=== PATIENT | male | born 1985 ===

== ENCOUNTER 2017-01-21 19:14 | Inpatient (IN) | payer MEDICAID, OTHER ==
[2017-01-21] MEDS ORDERED: Etomidate 20 mg/10ml Inj IV ONE (19:21)
[2017-01-21] MEDS ORDERED: Succinylcholine 200 mg/10 ml Inj IV ONE (19:22)
[2017-01-21 19:24] VITALS: BMI 25.8
[2017-01-21] MEDS ORDERED: Naloxone 0.4 mg/ml Inj (Adult) ONE (19:24)
--- NOTE | 2017-01-21 19:34 | ED PDOC ---
Arrival/HPI - General Chief Complaint: Altered Mental Status Time Seen by Provider: 01/21/17 19:30 Historian: EMS - History of Present Illness Narrative History of Present Illness (Text): 01/21/17 19:31 Unknown aged male with unknown past medical history brought in by ambulance for altered mental status. As per EMS, patient was found with altered mental status , unable to provide further history due to language barrier. EMS reports as the patient was walking to the stretcher he became unresponsive. It is unknown if alcohol consumption was a factor. On arrival, patient is unarousable to deep sternal rub, unable to protect airway. Narcan was given with no response. Patient intubated for airway protection. Time/Duration: Prior to Arrival Symptom Onset: Sudden Symptom Course: Unchanged Associated Symptoms (Text): None Past Medical History - Provider Review Nursing Documentation Reviewed: Yes - Psychiatric Hx Substance Use: No (unknown) Family/Social History - Physician Review Nursing Documentation Reviewed: Yes Family/Social History: Unknown Family HX Smoking Status: Unknown If Ever Smoked Hx Alcohol Use: Yes Hx Substance Use: No (unknown) Allergies/Home Meds Allergies/Adverse Reactions: Allergies No Known Allergies Allergy (Verified 01/23/17 07:31) Review of Systems - Review of Systems Systems not reviewed;Unavailable: Altered Mental Status Physical Exam Vital Signs Reviewed: Yes Vital Signs Pulse Resp BP Pulse Ox 01/21/17 22:28 78 12 127/66 99 01/21/17 21:25 86 18 132/74 98 01/21/17 20:30 68 18 119/70 99 01/21/17 19:24 64 9 L 126/83 82 L Blood Pressure: Normal Pulse: Regular Respiratory Rate: Agonal Appearance: Positive for: Well-Appearing, Non-Toxic, Comfortable Pain Distress: None Mental Status: Positive for: other (Unarousable by sternal rub) Finger Stick Blood Glucose: 126 - Systems Exam Head: Present: Atraumatic, Normocephalic, Other (Dry blood around nares and oral pharynx) Pupils: Present: PERRL Conjunctiva: Present: Normal Mouth: Present: Other (Poor dentition) Abdomen: Present: Normal Bowel Sounds. No: Tenderness, Distention, Peritoneal Signs Upper Extremity: Present: Normal Inspection. No: Cyanosis, Edema Lower Extremity: Present: Normal Inspection. No: Edema Skin: Present: Warm, Dry, Normal Color. No: Rashes Medical Decision Making ED Course and Treatment: Impression: Unknown aged male with unknown past medical history brought in by ambulance for altered mental status. Differential Diagnosis include but are not limited to: Plan: -- CT's head, maxillofacial, c-spine, EKG, Chest X-ray -- Labs -- Reassess and disposition Progress Notes: Patient seen immediately on arrival. Patient unarousable to sternal rub, unable to protect airway. Narcan was given with no response. Patient subsequently intubated for airway protection. PROCEDURE: INTUBATION Performed by the emergency provider Time: 19:30 Consent: Discussion of the risks, benefits, and alternatives to the procedure, along with informed consent was precluded by the urgency of the procedure and the patient condition. Timeout: A timeout to verify the correct patient, procedure, and site was performed. Indication: Unarousable, unable to protect airway Pre-oxygenation: [id number] Medications: Propofol See MAR for details. ETT Size: 7 Confirmation: Cords directly visualized as tube passed, good bilateral breath sounds, positive CO2 detector color change, tube fogging, adequate chest rise, improving pulse oximetry reading, improved skin color, and absence of gastric sounds,. ETT Secured: The cuff was inflated and the tube was secured appropriately at a distance of 23 cm at the lip. Post-Procedure: There were no immediate complications. CXR Confirmation: Yes - Critical Care Critical Care Minutes: 30 minutes - Lab Interpretations Lab Results: 01/21/17 19:20 01/21/17 19:20 Lab Results 01/21/17 20:48: Urine Color Yellow, Urine Appearance Clear, Urine pH 6.0, Ur Specific [place] <= 1.005, Urine Protein Trace H, Urine Glucose (UA) Negative, Urine Ketones Negative, Urine Blood Moderate H, Urine Nitrate Negative, Urine Bilirubin Negative, Urine Urobilinogen 0.2, Ur Leukocyte Esterase Negative, Urine RBC 20 - 25, Urine WBC 2 - 5, Ur Epithelial Cells 4 - 5, Urine Opiates Screen Negative, Urine Methadone Screen Negative, Ur Barbiturates Screen Negative, Ur Phencyclidine Scrn Negative, Ur Amphetamines Screen Negative, U Benzodiazepines Scrn Negative, U Oth Cocaine Metabols Positive H, U Cannabinoids Screen Negative 01/21/17 19:20: WBC 3.5 L, RBC 4.32, Hgb 13.1 L, Hct 38.2 L, MCV 88.4, MCH 30.3 , MCHC 34.3, RDW 13.9, Plt Count 224, MPV 10.3, Gran % 46.2 L, Lymph % (Auto) 42.6 H, [place] % (Auto) 8.1 H, Eos % (Auto) 1.7, Baso % (Auto) 1.4, Gran # 1.59, Lymph # 1.5, [place] # 0.3, Eos # 0.1, Baso # 0.05, PT 11.3, INR 1.05, APTT 29.5, Sodium 143, Potassium 3.7, Chloride 105, Carbon Dioxide 22, Anion Gap 20, BUN 6 L, Creatinine 0.6, Est GFR ( Amer) > 60, Est GFR (Non-Af Amer) > 60, Random Glucose 124 H, Calcium 8.8, Magnesium 2.2, Total Bilirubin 0.9, AST 82 H , ALT 50, Alkaline Phosphatase 104, Lactate Dehydrogenase 560, Total Creatine Kinase 280 H, CK-MB (CK-2) 2.4, CK-MB (CK-2) % Cancelled, Troponin I < 0.01, Total Protein 8.7 H, Albumin 4.5, Globulin 4.2, Albumin/Globulin Ratio 1.1, TSH 3rd Generation 0.34 L, Salicylates < 1 L, Acetaminophen < 10.0 L, Alcohol, Quantitative 404 H*, Hepatitis A IgM Ab Negative, Hep Bs Antigen Negative, Hep B Core IgM Ab Negative, Hepatitis C Antibody Negative - RAD Interpretation Radiology Orders: 01/21/17 19:30 CHEST PORTABLE [RAD] Stat 01/21/17 19:31 CERVICAL SPINE W/O CONTRAST [CT] Stat HEAD W/O CONTRAST [CT] Stat MAXILLOFACIAL W/O CONTRAST [CT] Stat - Medication Orders Current Medication Orders: Discontinued Medications Etomidate (Amidate) Confirm Administered Dose 20 mg IV .STK-MED ONE Stop: 01/21/17 19:22 Last Admin: 01/21/17 19:21 Dose: 20 MG Comments: given by intubation team eMAR Start Stop Document 01/21/17 19:21 TAMRA (Rec: 01/21/17 20:36 [place] [id number] Intravenous Solution Start Date 01/21/17 Start Time 19:21 End Date 01/21/17 End time 19:21 Total Infusion Time 0 Folic Acid (Folic Acid) 1 mg PO DAILY [facility] Last Admin: 01/24/17 11:44 Dose: 1 MG Heparin Sodium (Porcine) (Heparin) 5,000 units SC Q12 RAUL PRN Reason: Protocol Last Admin: 01/24/17 11:44 Dose: 5,000 UNITS Subcutaneous Administrations Document 01/24/17 11:44 TAV (Rec: 01/24/17 11:44 TAV [id number] Injection Site MAR Injection Site Right Abdomen Charges for Administration # of Subcutaneous Administrations 1 Propofol (Diprivan) 100 mls @ 2.177 mls/hr IV .Q24H PRN; Protocol; 5 MCG/KG/MIN PRN Reason: TITRATE PER MD ORDER Last Admin: 01/22/17 03:00 Dose: 21.773 MLS/HR Titration Intervention Document 01/22/17 03:00 MPD (Rec: 01/22/17 07:25 MPD [id number]) Titration Intake Container Volume 100 Titration Dosing Titration Dose 50 IV Rate 21.773 Intake/Decrease Running eMAR Start Stop Document 01/22/17 03:00 MPD (Rec: 01/22/17 07:25 MPD [id number]) Intravenous Solution Start Date 01/22/17 Start Time 04:00 Sodium Chloride (Sodium Chloride 0.9%) 1,000 mls @ 100 mls/hr IV .Q10H [facility] Last Admin: 01/24/17 11:51 Dose: Not Given Non-Admin Reason: Patient Refused Multivitamins/Vitamin C 10 ml/Thiamine HCl 100 mg/ Folic Acid 1 mg/ Sodium Chloride 1,011.2 mls @ 100 mls/hr IV .Q10H7M ONE Stop: 01/22/17 08:19 Last Admin: 01/21/17 23:30 Dose: 100 MLS/HR eMAR Start Stop Document 01/21/17 23:30 MPD (Rec: 01/22/17 00:35 MPD [id number]) Intravenous Solution Start Date 01/21/17 Start Time 23:30 Multivitamins/Vitamin C 10 ml/ (Dextrose) 1,010 mls @ 100 mls/hr IV ONCE ONE Stop: 01/23/17 04:12 Lorazepam (Ativan) 2 mg IVP ONCE ONE PRN Reason: Protocol Stop: 01/21/17 20:04 Last Admin: 01/21/17 20:39 Dose: 2 MG Behavioural Document 01/21/17 20:39 TAMRA (Rec: 01/21/17 20:[address] [id number]) Maintenance Maintenance Dose No Nonmedicinal Nonmedicinal Interventions Redirect Behavior Behavior for Medication: Pulling IV lines/tubes/ catheter IVP Administration Document 01/21/17 20:39 TAMRA (Rec: 01/21/17 20:[address] [id number]) Charges for Administration # of IVP Administrations 1 Lorazepam (Ativan) 2 mg IVP Q6H PRN; Protocol PRN Reason: Agitation Last Admin: 01/22/17 06:06 Dose: 2 MG Behavioural Document 01/22/17 06:06 MPD (Rec: 01/22/17 06:07 MPD [id number]) Nonmedicinal Nonmedicinal Interventions Redirect Behavior Behavior for Medication: Anxiety Head banging Pulling IV lines/tubes/ catheter IVP Administration Document 01/22/17 06:06 MPD (Rec: 01/22/17 06:07 MPD [id number]) Charges for Administration # of IVP Administrations 1 Naloxone HCl (Narcan) Confirm Administered Dose 0.4 mg .ROUTE .STK-MED ONE Stop: 01/21/17 19:25 Last Admin: 01/21/17 20:34 Dose: 0.4 MG Pantoprazole Sodium (Protonix Inj) 40 mg IVP DAILY [facility] Last Admin: 01/24/17 11:45 Dose: 40 MG IVP Administration Document 01/24/17 11:45 TAV (Rec: 01/24/17 11:[address] [facility] [id number]) Charges for Administration # of IVP Administrations 1 Succinylcholine Chloride (Quelicin) Confirm Administered Dose 200 mg IV .STK- MED ONE Stop: 01/21/17 19:23 Last Admin: 01/21/17 19:22 Dose: 200 MG Comments: Given by intubation team eMAR Start Stop Document 01/21/17 19:22 TAMRA (Rec: 01/21/17 20:[address] [id number]) Intravenous Solution Start Date 01/21/17 Start Time 19:22 End Date 01/21/17 End time 19:22 Total Infusion Time 0 Thiamine HCl (Vitamin B1 Inj) 100 mg IM STAT STA Stop: 01/21/17 22:14 Last Admin: 01/22/17 00:00 Dose: 100 MG IM Administration Charges Document 01/22/17 00:00 MPD (Rec: 01/22/17 01:13 MPD [id number] Injection Site MAR Injection Site Right Deltoid Charges for Administration # of IM Administrations 1 Thiamine HCl (Vitamin B1 Tab) 50 mg PO DAILY [facility] Last Admin: 01/24/17 11:45 Dose: 50 MG - Scribe Statement The provider has reviewed the documentation as recorded by the Ligia Leiva Provider Scribe Attestation: All medical record entries made by the Ligia were at my direction and personally dictated by me. I have reviewed the chart and agree that the record accurately reflects my personal performance of the history, physical exam, medical decision making, and the department course for this patient. I have also personally directed, reviewed, and agree with the discharge instructions and disposition. Disposition/Present on Arrival - Present on Arrival Any Indicators Present on Arrival: No History of DVT/PE: No History of Uncontrolled Diabetes: No Urinary Catheter: No History of Decub. Ulcer: No History Surgical Site Infection Following: None - Disposition Have Diagnosis and Disposition been Completed?: Yes Diagnosis: Drug overdose, Respiratory failure Disposition: HOSPITALIZED Disposition Time: 08:00 Condition: FAIR
[2017-01-21 20:08] LABS: ADD MANUAL DIFF? NO
[2017-01-21 20:13] LABS: BASO # 0.05 K/mm3 (0.0-2.0); BASO % 1.4 % (0.0-3.0); EOS # 0.1 (0.0-0.7); EOS % 1.7 % (1.5-5.0); GRAN # 1.59 (1.4-6.5); GRAN % 46.2 % (50.0-68.0); HEMATOCRIT 38.2 % (42.0-52.0); LYMPH # 1.5 (1.2-3.4); LYMPH % 42.6 % (22.0-35.0); MEAN CELL VOLUME 88.4 fL (80.0-105.0); MEAN CORPUSCULAR HEMOGLOBIN 30.3 pg (25.0-35.0); MEAN CORPUSCULAR HGB CONC 34.3 g/dl (31.0-37.0); MEAN PLATELET VOLUME 10.3 fl (7.0-11.0); MONO # 0.3 (0.1-0.6); MONO % 8.1 % (1.0-6.0); PLATELET COUNT 224 10^3/uL (120.0-450.0); RED CELL DISTRIBUTION WIDTH 13.9 % (11.5-14.5); WHITE BLOOD COUNT 3.5 10^3/ul (4.5-11.0)
[2017-01-21 20:25] LABS: INR 1.05 (0.93-1.08); PARTIAL THROMBOPLASTIN TIME 29.5 Seconds (23.7-30.8)
[2017-01-21 20:40] LABS: ALB/GLOB RATIO 1.1 (1.1-1.8); ALKALINE PHOSPHATASE 104 U/L (38-133); ALT/SGPT 50 U/L (7-56); AST/SGOT 82 U/L (15-59); BILIRUBIN,TOTAL 0.9 mg/dL (0.2-1.3); BLOOD UREA NITROGEN 6 mg/dL (7-21); CALCIUM 8.8 mg/dL (8.4-10.5); CARBON DIOXIDE 22 mmol/L (21-33); CHLORIDE 105 mmol/L (98-107); GFR AFRICAN-AMERICAN > 60; GLUCOSE,RANDOM 124 mg/dL (70-110); MAGNESIUM 2.2 mg/dL (1.7-2.2); POTASSIUM 3.7 mmol/L (3.6-5.0); SODIUM 143 mmol/L (132-148); TOTAL PROTEIN 8.7 g/dL (5.8-8.3)
[2017-01-21 20:57] LABS: URINE BILIRUBIN NEGATIVE (NEGATIVE); URINE BLOOD MODERATE (NEGATIVE); URINE GLUCOSE (UA) NEGATIVE (NEGATIVE); URINE KETONE NEGATIVE (NEGATIVE); URINE LEUKOCYTE ESTERASE NEGATIVE Leu/uL (NEGATIVE); URINE PROTEIN TRACE mg/dL (<30 mg/dL); URINE UROBILINOGEN 0.2 E.U./dL (<1 E.U./dL)
[2017-01-21 20:58] LABS: URINE APPEARANCE CLEAR (CLEAR); URINE COLOR YELLOW (YELLOW)
[2017-01-21 20:59] LABS: URINE RBC 20 - 25 /hpf (0-2)
[2017-01-21 20:59] LABS: TROPONIN I < 0.01 ng/mL
[2017-01-21 21:21] LABS: ABG MECHANICAL RATE 16; ARTERIAL BLOOD GAS HCO3 21.1 mmol/L (21-28); ARTERIAL BLOOD GAS PH 7.32 (7.35-7.45); ATERIAL BLOOD GAS PEEP 5
--- NOTE | 2017-01-21 21:37 | CP.PCM.HP ---
<Mami Arreola - Last Filed: 01/21/17 22:18> History of Present Illness - History of Present Illness History of Present Illness: This is a 31Y M with unknown PMH who called EMS and was found to be intoxicated. EMS noted dried blood on his nares. He was brought to the stretched and collapsed. He was unresponsive. In the ED, patient was not arrousable. He was intubated for airway protection. EKG showed NSR. Patient was found to be positive for cocaine and had an alcohol level of 404. PMH: unknown PSH: unknown Home meds: Unobtainable All: Unobtainable SH: + for cocaine and high alcohol level FH: Unobtainable PMD: unknown Present on Admission - Present on Admission Any Indicators Present on Admission: No Review of Systems - Review of Systems Systems not reviewed;Unavailable: Intubated Past Patient History - Past Social History Smoking Status: Unknown If Ever Smoked Drugs: Cocaine - PSYCHIATRIC Hx Substance Use: No (unknown) - SURGICAL HISTORY Hx Surgeries: (unable to obtain) Meds Allergies/Adverse Reactions: Allergies Allergy/AdvReac Type Severity Reaction Status Date / Time Unobtainable Allergy Verified 01/21/17 19:23 Physical Exam - Constitutional Appears: No Acute Distress Additional comments: Pt intubated and sedated - Head Exam Head Exam: ATRAUMATIC, NORMAL INSPECTION, NORMOCEPHALIC - Eye Exam Eye Exam: Normal appearance Pupil Exam: Miosis - ENT Exam Additional comments: dried blood on face and nares - Neck Exam Neck exam: Positive for: Normal Inspection - Respiratory Exam Respiratory Exam: Clear to Auscultation Bilateral, NORMAL BREATHING PATTERN. absent: Rales, Rhonchi, Wheezes - Cardiovascular Exam Cardiovascular Exam: REGULAR RHYTHM, +S1, +S2. absent: Gallop, Rubs, Systolic Murmur - GI/Abdominal Exam GI & Abdominal Exam: Hypoactive Bowel Sounds, Soft. absent: Mass, Rebound, Rigid, Tenderness - Extremities Exam Extremities exam: Positive for: normal inspection. Negative for: calf tenderness, pedal edema - Skin Skin Exam: Dry, Normal Color, Warm Results - Vital Signs Recent Vital Signs: Last Vital Signs Temp Pulse 64 01/21/17 19:24 Resp 9 L 01/21/17 19:24 BP 126/83 01/21/17 19:24 Pulse Ox 82 L 01/21/17 19:24 - Labs Result Diagrams: 01/21/17 19:20 01/21/17 19:20 Labs: Laboratory Results - last 24 hr 01/21/17 01/21/17 01/21/17 19:20 20:48 21:15 WBC 3.5 L RBC 4.32 Hgb 13.1 L Hct 38.2 L MCV 88.4 MCH 30.3 MCHC 34.3 RDW 13.9 Plt Count 224 MPV 10.3 Gran % 46.2 L Lymph % (Auto) 42.6 H [place] % (Auto) 8.1 H Eos % (Auto) 1.7 Baso % (Auto) 1.4 Gran # 1.59 Lymph # 1.5 [place] # 0.3 Eos # 0.1 Baso # 0.05 PT 11.3 INR 1.05 APTT 29.5 pCO2 41 pO2 404.0 H HCO3 21.1 ABG pH 7.32 L ABG Total CO2 22.4 ABG O2 Saturation 97.7 ABG Base Excess -4.8 L ABG Potassium 3.5 L Glucose 90 Lactate 2.0 Mechanical Rate 16 FiO2 100.0 Tidal Volume 400 PEEP 5 Sodium 143 143.0 Potassium 3.7 Chloride 105 116.0 H Carbon Dioxide 22 Anion Gap 20 BUN 6 L Creatinine 0.6 Est GFR ( Amer) > 60 Est GFR (Non-Af Amer) > 60 Random Glucose 124 H Calcium 8.8 Magnesium 2.2 Total Bilirubin 0.9 AST 82 H ALT 50 Alkaline Phosphatase 104 Lactate Dehydrogenase 560 Total Creatine Kinase 280 H CK-MB (CK-2) 2.4 CK-MB (CK-2) % Cancelled Troponin I < 0.01 Total Protein 8.7 H Albumin 4.5 Globulin 4.2 Albumin/Globulin Ratio 1.1 Arterial Blood Potassium 3.5 L Urine Color Yellow Urine Appearance Clear Urine pH 6.0 Ur Specific [place] <= 1.005 Urine Protein Trace H Urine Glucose (UA) Negative Urine Ketones Negative Urine Blood Moderate H Urine Nitrate Negative Urine Bilirubin Negative Urine Urobilinogen 0.2 Ur Leukocyte Esterase Negative Urine RBC 20 - 25 Urine WBC 2 - 5 Ur Epithelial Cells 4 - 5 Salicylates < 1 L Urine Opiates Screen Negative Urine Methadone Screen Negative Acetaminophen < 10.0 L Ur Barbiturates Screen Negative Ur Phencyclidine Scrn Negative Ur Amphetamines Screen Negative U Benzodiazepines Scrn Negative U Oth Cocaine Metabols Positive H U Cannabinoids Screen Negative Alcohol, Quantitative 404 H* Assessment & Plan - Assessment and Plan (Free Text) Assessment: This is a 31Y M with unknown PMH found to be positive for alcohol and cocaine was intubated for airway protection. Plan: Neuro: Sedated on Propofol CIWA protocol when pt awake Aspiration precaution Ativan prn agitation Neuro check q4h Head CT neg for bleed Cervical Spine CT neg for fracture Maxofacial CT showed bilateral nasal fracture- patient can follow up with ENT as outpatient CV: EKG showed NSR Maintain MAP >65 Strict I&O Pulm: on PRVC Maintain SpO2>90% Breathing trial in AM ABG in AM GI: Protonix IV AST mildly elevated Will check Hep panel Heme: Mild leukopenia Mild anemia Will continue to monitor CBC Renal: [place] in place Banana bag Continue to monitor electrolytes- will replace and replete as needed Will check Phos Endo: Will check TSH Maintain Euglycemia GI ppx: PTX DVT ppx: Heparin SC Case seem, reviewed and discussed with attending. Yulisa Arreola PGY1 - Date & Time Date: 01/21/17 Time: 21:52 <Matthew Russo Q - Last Filed: 01/21/17 23:42> Results - Vital Signs Recent Vital Signs: Last Vital Signs Temp Pulse 78 01/21/17 22:28 Resp 12 01/21/17 22:28 BP 127/66 01/21/17 22:28 Pulse Ox 99 01/21/17 22:28 - Labs Result Diagrams: 01/21/17 19:20 01/21/17 19:20 Labs: Laboratory Results - last 24 hr 01/21/17 21:15 pCO2 41 pO2 404.0 H HCO3 21.1 ABG pH 7.32 L ABG Total CO2 22.4 ABG O2 Saturation 97.7 ABG Base Excess -4.8 L ABG Potassium 3.5 L Sodium 143.0 Chloride 116.0 H Glucose 90 Lactate 2.0 Mechanical Rate 16 FiO2 100.0 Tidal Volume 400 PEEP 5 Arterial Blood Potassium 3.5 L Attending/Attestation - Attestation I have personally seen and examined this patient.: Yes I have fully participated in the care of the patient.: Yes I have reviewed all pertinent clinical information: Yes Notes (Text): 01/21/17 23:38 I agree with the above mentioned note and exam by Dr. Arreola with the addition /exception of the followin31 y/o male with an unknown PMHx as he is brought in to the ED without any identification as a "Kendell Taylor" who was noted to be intoxicated and subsequently becoming unresponsive; he was intubated in the ED for airway protection due to oxygen desaturation and unresponsiveness. CT Head did not show any bleed; Maxillofacial CT shows nasal septum fractures. I weaned down the diprivan he was started on in the ED and the patient became agitated and attempted to remove his ETT while on restraints; we will keep him on sedation overnight and attempt a breathing trial in the AM once he is no longer intoxicated. He is hemodynamically stable otherwise; will hydrate him with Banana Bag IVF. Case discussed at length with Dr. Juárez in the ED all labs and images that have been available thus far have been reviewed personally; Vrads reports noted total time of care: 40 minutes
--- NOTE | 2017-01-21 21:55 | CT ---
EXAM: CT Head Without Intravenous Contrast CLINICAL HISTORY: 31 years old, male; Injury or trauma; Fall; Initial encounter; Abrasion; Head, generalized; Patient HX: ETOH; intubated TECHNIQUE: Axial computed tomography images of the head/brain without intravenous contrast. This CT exam was performed using one or more of the following dose reduction techniques: automated exposure control, adjustment of the mA and/or kV according to patient size, and/or use of iterative reconstruction technique. EXAM DATE/TIME: 01/21/2017 7:31 PM COMPARISON: There are no prior studies for comparison. FINDINGS: Brain: There is prominence of sulci, gyri and ventricles. There is a cavum septum pellucidum. There is a cavum vergae. There is no midline shift. There are no intra-axial or extra-axial mass lesions or areas of hemorrhage. There are no abnormal fluid collections. Russell-white differentiation is maintained. Ventricles: See above. Bones/joints: Bones: Cranial vault is intact. There are nasal bone fractures. There is a nasal septal fracture Soft tissues: unremarkable Tubes and catheters: An endotracheal tube is in place Sinuses: There is mucoperiosteal thickening in the paranasal sinuses Mastoid air cells: Ears and mastoids: Middle ears and mastoids are unremarkable Orbits: Right globe is unremarkable There is an old right lamina papyracea fracture. There is deformity of the left globe. There is partial dislocation of the left lens. There are dystrophic calcifications. There is vitreous hemorrhage. There are no acute retrobulbar injury. IMPRESSION: Atrophy, no bleed; probable old left globe injury; old right lamina papyracea fracture; age indeterminate nasal bone fractures
--- NOTE | 2017-01-21 22:02 | CT ---
EXAM: CT Cervical Spine Without Intravenous Contrast CLINICAL HISTORY: 31 years old, male; Injury or trauma; Fall; Initial encounter; Abrasion; Patient HX: Fall ETOH; intubated TECHNIQUE: Axial computed tomography images of the cervical spine without intravenous contrast. This CT exam was performed using one or more of the following dose reduction techniques: automated exposure control, adjustment of the mA and/or kV according to patient size, and/or use of iterative reconstruction technique. Coronal and sagittal reformatted images were created and reviewed. EXAM DATE/TIME: 01/21/2017 7:31 PM COMPARISON: There are no prior studies for comparison. FINDINGS: Limitations: Evaluation is slightly limited by asymmetric positioning. Vertebrae: There is maintenance of the cervical lordosis. There is no prevertebral soft tissue swelling. Cervical vertebral bodies are normal in height and alignment. Disc spaces are maintained. Facet joints align anatomically.Spinous processes align in the expected fashion. There is mild asymmetry of the dens relative to lateral masses of C1 most likely positional Discs/spinal canal/neural foramina: see above Other bones/joints: There is an old left second rib fracture Soft tissues: See above. Thyroid: Thyroid is unremarkable Lung apices: Lung apices are clear Tubes, lines and devices: Endotracheal tube is in place. Tip of the tube is at the thoracic inlet. Other: There is minimal iatrogenic venous air IMPRESSION: No acute fracture seen
[2017-01-21] MEDS ORDERED: Multivitamin (MVI) 10 ML, Thiamine 100 MG, Folic Acid 1 MG in Sodium Chloride 0.9% 1,00... IV ONE (22:13)
[2017-01-21] MEDS ORDERED: Thiamine 100 mg/ml Inj IM STA (22:13)
--- NOTE | 2017-01-21 22:14 | CT ---
EXAM: CT Maxillofacial Without Intravenous Contrast CLINICAL HISTORY: 31 years old, male; Injury or trauma; Fall; Initial encounter; Abrasion; Forehead; Patient HX: ETOH; intubated TECHNIQUE: Axial computed tomography images of the face without intravenous contrast. This CT exam was performed using one or more of the following dose reduction techniques: automated exposure control, adjustment of the mA and/or kV according to patient size, and/or use of iterative reconstruction technique. Coronal and sagittal reformatted images were created and reviewed. EXAM DATE/TIME: 01/21/2017 7:31 PM COMPARISON: There are no prior studies for comparison. FINDINGS: Superficial soft tissues: There is soft tissue swelling over the nose. There is soft tissue swelling in the cheeks bilaterally. Bony structures: There are bilateral nasal bone fractures. There is a bony nasal septal fracture. There is an old right lamina papyracea fracture. There is herniation of right orbital fat into the adjacent ethmoid air cell. There are no acute orbital fractures. Dental: There are large erosions in the alveolar ridge of the mandible. Erosion is associated bilateral central and lateral incisors. There is partial absence of the right upper central incisor. There is a large erosion of the root of the left central incisor. There is partial absence of the left upper canine. Brain: No acute abnormalities are seen in visualized portion of the brain. Ears and mastoids: Middle ears and mastoids are unremarkable Orbits: Right globe is intact. There is deformity of the left globe. There is partial dislocation of the left lens.. There are dystrophic calcifications in the vitreous. There is a increased attenuation in the posterior vitreous. Sinuses: There is no acute sinusitis. There is mild mucoperiosteal thickening in the sinuses. Soft tissues: There are no facial masses. Airway: An endotracheal tube is in place. There is fluid in the posterior nasopharynx and oropharynx. Hypopharynx is collapsed. IMPRESSION: Soft tissue swelling over the nose and cheeks with nasal bone fractures and nasal septal fracture; old right lamina papyracea fracture; probable old left globe injury; extensive dental disease; endotracheal tube in place
[2017-01-22 05:39] LABS: ADD MANUAL DIFF? NO
[2017-01-22 05:44] LABS: BASO # 0.03 K/mm3 (0.0-2.0); BASO % 0.6 % (0.0-3.0); EOS # 0.1 (0.0-0.7); EOS % 2.3 % (1.5-5.0); GRAN # 3.16 (1.4-6.5); HEMATOCRIT 35.8 % (42.0-52.0); LYMPH # 1.3 (1.2-3.4); LYMPH % 24.9 % (22.0-35.0); MEAN CELL VOLUME 88.6 fL (80.0-105.0); MEAN CORPUSCULAR HEMOGLOBIN 29.7 pg (25.0-35.0); MEAN CORPUSCULAR HGB CONC 33.5 g/dl (31.0-37.0); MEAN PLATELET VOLUME 10.1 fl (7.0-11.0); MONO # 0.6 (0.1-0.6); MONO % 12.2 % (1.0-6.0); PLATELET COUNT 189 10^3/uL (120.0-450.0); RED CELL DISTRIBUTION WIDTH 14.3 % (11.5-14.5); WHITE BLOOD COUNT 5.3 10^3/ul (4.5-11.0)
[2017-01-22 05:46] LABS: VENOUS BLOOD GAS BASE EXCESS -3.4 mmol/L (0.0-2.0); VENOUS BLOOD PH 7.37 (7.32-7.43)
[2017-01-22 06:38] LABS: ALB/GLOB RATIO 1.1 (1.1-1.8); ALKALINE PHOSPHATASE 91 U/L (38-133); ALT/SGPT 51 U/L (7-56); AST/SGOT 85 U/L (15-59); BILIRUBIN,TOTAL 0.7 mg/dL (0.2-1.3); BLOOD UREA NITROGEN 6 mg/dL (7-21); CALCIUM 8.2 mg/dL (8.4-10.5); CARBON DIOXIDE 22 mmol/L (21-33); CHLORIDE 112 mmol/L (98-107); GFR AFRICAN-AMERICAN > 60; GLUCOSE,RANDOM 90 mg/dL (70-110); MAGNESIUM 2.1 mg/dL (1.7-2.2); PHOSPHOROUS 2.7 mg/dL (2.5-4.5); POTASSIUM 3.7 mmol/L (3.6-5.0); SODIUM 145 mmol/L (132-148); TOTAL PROTEIN 7.5 g/dL (5.8-8.3)
--- NOTE | 2017-01-22 09:10 | RAD ---
HISTORY: intubation COMPARISON: No prior. FINDINGS: The endotracheal tube terminates 3 cm proximal to the fred. LUNGS: There is minimal bibasilar atelectasis. There is no focal consolidation. PLEURA: No significant pleural effusion identified, no pneumothorax apparent. CARDIOVASCULAR: Normal. OSSEOUS STRUCTURES: No significant abnormalities. VISUALIZED UPPER ABDOMEN: Normal. OTHER FINDINGS: None. IMPRESSION: Endotracheal tube terminates 3 cm proximal to the fred. No active pulmonary disease.
[2017-01-22 09:11] LABS: VENOUS BLOOD GAS BASE EXCESS -3.2 mmol/L (0.0-2.0); VENOUS BLOOD PH 7.33 (7.32-7.43)
[2017-01-22 09:48] LABS: T4 5.6 ug/dL (5.5-11.0)
--- NOTE | 2017-01-22 12:09 | CARD ---
APPROVED REPORT EKG Measurement Heart [id number] <Conclusion> Normal sinus rhythm Normal ECG
--- NOTE | 2017-01-22 15:28 | CP.PCM.CON ---
<Og Izaguirre - Last Filed: 01/22/17 15:24> History of Present Illness - History of Present Illness History of Present Illness: 31 y/o M with no significant PMH who called EMS and was found to be intoxicated. Much of information was obtained from prior medical record and brother who eventually came to bedside. Pt was brought into the hospital and was found to be not arousable. Pt was subsequently intubated to protect his airway. Maxillary-facial CT showed nasal bone and septum fracture. Pt was found to have an alcohol level of 404 and UDS demonstrated cocaine. Pt's brother was at bedside this AM and was able to provide a small amount of history, but does not live with pt. PMH: unknown PSH: None Home meds: None All: Unobtainable SH: Recent increase in chronic alcohol use as per brother. FH: None Review of Systems - Review of Systems Systems not reviewed;Unavailable: Intubated Past Patient History - Past Social History Smoking Status: Unknown If Ever Smoked - PULMONARY Other/Comment: unknown medical hx -pt unresponsive no identification or family available - HEENT Hx Cataracts: Yes (left eye opague,abn., no reaction noted) - MUSCULOSKELETAL/RHEUMATOLOGICAL Hx Falls: Yes - PSYCHIATRIC Hx Substance Use: Yes - SURGICAL HISTORY Hx Surgeries: (unable to obtain) Meds Allergies/Adverse Reactions: Allergies Allergy/AdvReac Type Severity Reaction Status Date / Time Unobtainable Allergy Verified 01/21/17 19:23 - Medications Medications: Current Medications Heparin Sodium (Porcine) (Heparin) 5,000 units SC Q12 RAUL PRN Reason: Protocol Last Admin: 01/22/17 10:20 Dose: Not Given Propofol (Diprivan) 100 mls @ 2.177 mls/hr IV .Q24H PRN; Protocol; 5 MCG/KG/MIN PRN Reason: TITRATE PER MD ORDER Last Admin: 01/22/17 03:00 Dose: 21.773 mls/hr Sodium Chloride (Sodium Chloride 0.9%) 1,000 mls @ 100 mls/hr IV .Q10H RAUL Lorazepam (Ativan) 2 mg IVP Q6H PRN; Protocol PRN Reason: Agitation Last Admin: 01/22/17 06:06 Dose: 2 mg Pantoprazole Sodium (Protonix Inj) 40 mg IVP DAILY RAUL Last Admin: 01/22/17 10:20 Dose: Not Given Physical Exam - Constitutional Appears: Non-toxic, In Acute Distress Additional comments: Responds to painful stimuli - Head Exam Head Exam: NORMOCEPHALIC Additional comments: Abrasions and dried blood on face and around nares. - Eye Exam Eye Exam: PERRL - ENT Exam ENT Exam: Mucous Membranes Moist, Normal Exam - Neck Exam Neck exam: Positive for: Normal Inspection. Negative for: Lymphadenopathy - Respiratory Exam Respiratory Exam: Clear to Auscultation Bilateral, Rhonchi. absent: Wheezes Additional comments: Intubated. - Cardiovascular Exam Cardiovascular Exam: RRR, +S1, +S2 - GI/Abdominal Exam GI & Abdominal Exam: Normal Bowel Sounds, Soft. absent: Guarding - Extremities Exam Extremities exam: Positive for: normal inspection. Negative for: calf tenderness, pedal edema - Skin Skin Exam: Abrasion (On face), Normal Color, Warm Results - Vital Signs Recent Vital Signs: Last Vital Signs Temp 98.8 F 01/22/17 12:00 Pulse 90 01/22/17 12:00 Resp 18 01/22/17 12:00 BP 134/100 H 01/22/17 12:00 Pulse Ox 99 01/22/17 12:00 - Labs Result Diagrams: 01/22/17 05:30 01/22/17 05:30 Labs: Laboratory Results - last 24 hr 01/21/17 01/22/17 01/22/17 21:15 05:30 08:50 WBC 5.3 D RBC 4.04 Hgb 12.0 L Hct 35.8 L MCV 88.6 MCH 29.7 MCHC 33.5 RDW 14.3 Plt Count 189 MPV 10.1 Gran % 60.0 Lymph % (Auto) 24.9 [place] % (Auto) 12.2 H Eos % (Auto) 2.3 Baso % (Auto) 0.6 Gran # 3.16 Lymph # 1.3 [place] # 0.6 Eos # 0.1 Baso # 0.03 pCO2 41 pO2 404.0 H 103 H 104 H HCO3 21.1 ABG pH 7.32 L ABG Total CO2 22.4 ABG O2 Saturation 97.7 ABG Base Excess -4.8 L ABG Potassium 3.5 L VBG pH 7.37 7.33 VBG pCO2 37.0 L 43.0 VBG HCO3 21.4 22.7 VBG Total CO2 22.5 24.0 VBG O2 Sat (Calc) 97.4 H 97.2 H VBG Base Excess -3.4 L -3.2 L VBG Potassium 3.6 3.7 Sodium 143.0 145 142.0 Chloride 116.0 H 112 H 114.0 H Glucose 90 86 86 Lactate 2.0 2.0 1.8 Mechanical Rate 16 FiO2 100.0 21.0 21.0 Tidal Volume 400 PEEP 5 Potassium 3.7 Carbon Dioxide 22 Anion Gap 15 BUN 6 L Creatinine 0.7 Est GFR ( Amer) > 60 Est GFR (Non-Af Amer) > 60 Random Glucose 90 Calcium 8.2 L Phosphorus 2.7 Magnesium 2.1 Total Bilirubin 0.7 AST 85 H ALT 51 Alkaline Phosphatase 91 Total Protein 7.5 Albumin 3.9 Globulin 3.6 Albumin/Globulin Ratio 1.1 Thyroxine (T4) Arterial Blood Potassium 3.5 L Venous Blood Potassium 3.6 3.7 Alcohol, Quantitative 01/22/17 09:02 WBC RBC Hgb Hct MCV MCH MCHC RDW Plt Count MPV Gran % Lymph % (Auto) [place] % (Auto) Eos % (Auto) Baso % (Auto) Gran # Lymph # [place] # Eos # Baso # pCO2 pO2 HCO3 ABG pH ABG Total CO2 ABG O2 Saturation ABG Base Excess ABG Potassium VBG pH VBG pCO2 VBG HCO3 VBG Total CO2 VBG O2 Sat (Calc) VBG Base Excess VBG Potassium Sodium Chloride Glucose Lactate Mechanical Rate FiO2 Tidal Volume PEEP Potassium Carbon Dioxide Anion Gap BUN Creatinine Est GFR ( Amer) Est GFR (Non-Af Amer) Random Glucose Calcium Phosphorus Magnesium Total Bilirubin AST ALT Alkaline Phosphatase Total Protein Albumin Globulin Albumin/Globulin Ratio Thyroxine (T4) 5.6 Arterial Blood Potassium Venous Blood Potassium Alcohol, Quantitative 100 H Assessment & Plan - Assessment and Plan (Free Text) Plan: 31 y/o M with no significant PMH presents with alcohol intoxication and found to have cocaine on UDS. Pt underwent pressure support trial this morning and was eventually extubated. Pt accompanied by family at bedside. Will continue to monitor patient and monitor for alcohol withdrawal. Neuro: Extubated Monitor mental status Repeat alcohol level 100 Monitor for alcohol withdrawal Cardio: Hemodynamically stable Maintain MAP >65 Troponin negative x1, will not trend Pulm: Extubated Maintain O2 sat >90% CXR clear, no infiltrates or effusion GI: HHD Hep panel negative Protonix for GI prophylaxis Nephro: Continue NS, d/c banana bag Replenish electrolytes as needed Maintain euvolemia Heme/ID: Afebrile, No leukocytosis Maintain normothermia Endo: TSH low T3 ordered Maintain euglycemia PPX: Protonix Heparin Seen, reviewed, and discussed with attending. Dmitriy, PGY-1 <Trish SANCHEZ,Abrahan Bishop - Last Filed: 01/22/17 16:38> Meds - Medications Medications: Current Medications Folic Acid (Folic Acid) 1 mg PO DAILY [facility] Heparin Sodium (Porcine) (Heparin) 5,000 units SC Q12 RAUL PRN Reason: Protocol Last Admin: 01/22/17 10:20 Dose: Not Given Sodium Chloride (Sodium Chloride 0.9%) 1,000 mls @ 100 mls/hr IV .Q10H RAUL Lorazepam (Ativan) 2 mg IVP Q6H PRN; Protocol PRN Reason: Agitation Last Admin: 01/22/17 06:06 Dose: 2 mg Pantoprazole Sodium (Protonix Inj) 40 mg IVP DAILY RAUL Last Admin: 01/22/17 10:20 Dose: Not Given Thiamine HCl (Vitamin B1 Tab) 50 mg PO DAILY [facility] Results - Vital Signs Recent Vital Signs: Last Vital Signs Temp 98.8 F 01/22/17 12:00 Pulse 90 01/22/17 12:00 Resp 18 01/22/17 12:00 BP 134/100 H 01/22/17 12:00 Pulse Ox 99 01/22/17 12:00 - Labs Result Diagrams: 01/22/17 05:30 01/22/17 05:30 Labs: Laboratory Results - last 24 hr 01/21/17 01/22/17 01/22/17 21:15 05:30 08:50 WBC 5.3 D RBC 4.04 Hgb 12.0 L Hct 35.8 L MCV 88.6 MCH 29.7 MCHC 33.5 RDW 14.3 Plt Count 189 MPV 10.1 Gran % 60.0 Lymph % (Auto) 24.9 [place] % (Auto) 12.2 H Eos % (Auto) 2.3 Baso % (Auto) 0.6 Gran # 3.16 Lymph # 1.3 [place] # 0.6 Eos # 0.1 Baso # 0.03 pCO2 41 pO2 404.0 H 103 H 104 H HCO3 21.1 ABG pH 7.32 L ABG Total CO2 22.4 ABG O2 Saturation 97.7 ABG Base Excess -4.8 L ABG Potassium 3.5 L VBG pH 7.37 7.33 VBG pCO2 37.0 L 43.0 VBG HCO3 21.4 22.7 VBG Total CO2 22.5 24.0 VBG O2 Sat (Calc) 97.4 H 97.2 H VBG Base Excess -3.4 L -3.2 L VBG Potassium 3.6 3.7 Sodium 143.0 145 142.0 Chloride 116.0 H 112 H 114.0 H Glucose 90 86 86 Lactate 2.0 2.0 1.8 Mechanical Rate 16 FiO2 100.0 21.0 21.0 Tidal Volume 400 PEEP 5 Potassium 3.7 Carbon Dioxide 22 Anion Gap 15 BUN 6 L Creatinine 0.7 Est GFR ( Amer) > 60 Est GFR (Non-Af Amer) > 60 Random Glucose 90 Calcium 8.2 L Phosphorus 2.7 Magnesium 2.1 Total Bilirubin 0.7 AST 85 H ALT 51 Alkaline Phosphatase 91 Total Protein 7.5 Albumin 3.9 Globulin 3.6 Albumin/Globulin Ratio 1.1 Thyroxine (T4) Arterial Blood Potassium 3.5 L Venous Blood Potassium 3.6 3.7 Alcohol, Quantitative 01/22/17 09:02 WBC RBC Hgb Hct MCV MCH MCHC RDW Plt Count MPV Gran % Lymph % (Auto) [place] % (Auto) Eos % (Auto) Baso % (Auto) Gran # Lymph # [place] # Eos # Baso # pCO2 pO2 HCO3 ABG pH ABG Total CO2 ABG O2 Saturation ABG Base Excess ABG Potassium VBG pH VBG pCO2 VBG HCO3 VBG Total CO2 VBG O2 Sat (Calc) VBG Base Excess VBG Potassium Sodium Chloride Glucose Lactate Mechanical Rate FiO2 Tidal Volume PEEP Potassium Carbon Dioxide Anion Gap BUN Creatinine Est GFR ( Amer) Est GFR (Non-Af Amer) Random Glucose Calcium Phosphorus Magnesium Total Bilirubin AST ALT Alkaline Phosphatase Total Protein Albumin Globulin Albumin/Globulin Ratio Thyroxine (T4) 5.6 Arterial Blood Potassium Venous Blood Potassium Alcohol, Quantitative 100 H Attending/Attestation - Attestation I have personally seen and examined this patient.: Yes I have fully participated in the care of the patient.: Yes I have reviewed all pertinent clinical information: Yes Notes (Text): 01/22/17 16:37 31 y/o M w/ alcohol intoxication S/P intubation and passed SBt and extubated today aaox 3. No acute events S/P thimaine, folic acid, MV and I.V fluids x 3 L. On Ativan PRn for withdrawl to start in 24 hrs. Acute/ chronic nasal fx and orbital/ maxillary fx. Can have ENt involved. Heparin sq tid cc time 65 min
--- NOTE | 2017-01-22 18:05 | CP.PCM.PN ---
<ZebRachel - Last Filed: 01/22/17 18:19> Subjective - Date & Time of Evaluation Date of Evaluation: 01/22/17 Time of Evaluation: 08:15 - Subjective Subjective: Pt seen and evaluated at bedside. Pt is intubated so unable to conduct ros. As per nursing, no events overnight. Afebrile overnight. Objective - Vital Signs/Intake and Output Vital Signs (last 24 hours): Temp Pulse Resp BP Pulse Ox 98.8 F 90 18 134/100 H 99 01/22/17 12:00 01/22/17 12:00 01/22/17 12:00 01/22/17 12:00 01/22/17 12:00 Intake and Output: 01/22/17 01/22/17 06:59 18:59 Intake Total 840 Output Total 1800 Balance -960 - Medications Medications: Current Medications Folic Acid (Folic Acid) 1 mg PO DAILY [facility] Heparin Sodium (Porcine) (Heparin) 5,000 units SC Q12 RAUL PRN Reason: Protocol Last Admin: 01/22/17 10:20 Dose: Not Given Sodium Chloride (Sodium Chloride 0.9%) 1,000 mls @ 100 mls/hr IV .Q10H RAUL Lorazepam (Ativan) 2 mg IVP Q6H PRN; Protocol PRN Reason: Agitation Last Admin: 01/22/17 06:06 Dose: 2 mg Pantoprazole Sodium (Protonix Inj) 40 mg IVP DAILY [facility] Last Admin: 01/22/17 10:20 Dose: Not Given Thiamine HCl (Vitamin B1 Tab) 50 mg PO DAILY [facility] - Labs Labs: 01/22/17 05:30 01/22/17 05:30 PT 11.3 Seconds (9.9-11.8) 01/21/17 19:20 INR 1.05 (0.93-1.08) 01/21/17 19:20 APTT 29.5 Seconds (23.7-30.8) 01/21/17 19:20 - Additional Findings Additional findings: - Constitutional Appears: slightly agitated, pulling at lines. Pt intubated and sedated - Head Exam Head Exam: ATRAUMATIC, NORMAL INSPECTION, NORMOCEPHALIC - Eye Exam Eye Exam: Normal appearance - ENT Exam Additional comments: dried blood on face and nares - Neck Exam Neck exam: Positive for: Normal Inspection - Respiratory Exam Respiratory Exam: Clear to Auscultation Bilateral, NORMAL BREATHING PATTERN. absent: Rales, Rhonchi, Wheezes - Cardiovascular Exam Cardiovascular Exam: REGULAR RHYTHM, +S1, +S2. absent: Gallop, Rubs, Systolic Murmur - GI/Abdominal Exam GI & Abdominal Exam: Soft. absent: Mass, Rebound, Rigid, Tenderness - Extremities Exam Extremities exam: Positive for: normal inspection. Negative for: calf tenderness, pedal edema - Skin Skin Exam: Dry, Normal Color, Warm Assessment and Plan - Assessment and Plan (Free Text) Plan: 31Y M with unknown PMH found to be positive for alcohol and cocaine currently under ICU care for multidrug withdrawal. Pt is currently extubated. Multidrug withdrawal (etoh, cocaine) EKG showed NSR CIWA protocol Maintain SpO2>90% Aspiration precaution Ativan prn agitation Neuro check q4h Head CT neg for bleed Cervical Spine CT neg for fracture Maxofacial CT showed bilateral nasal fracture- patient can follow up with ENT as outpatient AST at 85, will monitor GI ppx: PTX DVT ppx: Heparin SC Case seem, reviewed and discussed with attending. Yulisa Carrington PGY1 <Katy SANCHEZ,[facility] - Last Filed: 01/26/17 10:14> Objective - Vital Signs/Intake and Output Vital Signs (last 24 hours): Temp Pulse Resp BP Pulse Ox 98.6 F 61 20 123/92 H 97 01/24/17 16:00 01/24/17 16:00 01/24/17 16:00 01/24/17 16:00 01/24/17 16:00 - Labs Labs: 01/24/17 07:40 01/24/17 07:40 PT 11.3 Seconds (9.9-11.8) 01/21/17 19:20 INR 1.05 (0.93-1.08) 01/21/17 19:20 APTT 29.5 Seconds (23.7-30.8) 01/21/17 19:20 Attending/Attestation - Attestation I have personally seen and examined this patient.: Yes I have fully participated in the care of the patient.: Yes I have reviewed all pertinent clinical information, including history, physical exam and plan: Yes Notes (Text): 31 Yrs old male was intubated for alcohol intoxication , followed by severe withdrawal, Critical care is following.We will continue supportive care.,
[2017-01-22] MEDS ORDERED: Multivitamin (MVI) 10 ML in Dextrose 5% In Water 1,000 ML IV ONE (18:07)
[2017-01-23 06:34] LABS: ADD MANUAL DIFF? NO
[2017-01-23 06:38] LABS: BASO # 0.03 K/mm3 (0.0-2.0); BASO % 0.6 % (0.0-3.0); EOS # 0.2 (0.0-0.7); EOS % 3.5 % (1.5-5.0); GRAN # 2.63 (1.4-6.5); GRAN % 54.5 % (50.0-68.0); HEMATOCRIT 37.3 % (42.0-52.0); LYMPH # 1.1 (1.2-3.4); MEAN CELL VOLUME 90.1 fL (80.0-105.0); MEAN CORPUSCULAR HEMOGLOBIN 30.4 pg (25.0-35.0); MEAN CORPUSCULAR HGB CONC 33.8 g/dl (31.0-37.0); MEAN PLATELET VOLUME 10.9 fl (7.0-11.0); MONO # 0.9 (0.1-0.6); MONO % 18.4 % (1.0-6.0); PLATELET COUNT 188 10^3/uL (120.0-450.0); RED CELL DISTRIBUTION WIDTH 14.1 % (11.5-14.5); WHITE BLOOD COUNT 4.8 10^3/ul (4.5-11.0)
[2017-01-23 06:54] LABS: ALKALINE PHOSPHATASE 91 U/L (38-133); ALT/SGPT 44 U/L (7-56); AST/SGOT 76 U/L (15-59); BILIRUBIN,TOTAL 2.1 mg/dL (0.2-1.3); BLOOD UREA NITROGEN 7 mg/dL (7-21); CALCIUM 9.1 mg/dL (8.4-10.5); CARBON DIOXIDE 28 mmol/L (21-33); CHLORIDE 102 mmol/L (98-107); GFR AFRICAN-AMERICAN > 60; GLUCOSE,RANDOM 92 mg/dL (70-110); MAGNESIUM 2.1 mg/dL (1.7-2.2); PHOSPHOROUS 2.9 mg/dL (2.5-4.5); SODIUM 141 mmol/L (132-148); TOTAL PROTEIN 7.8 g/dL (5.8-8.3)
--- NOTE | 2017-01-23 15:58 | CON ---
DATE: 01/23/2017 CONSULTING PHYSICIAN: Dr. Joseph Brand. REASON FOR CONSULTATION: Nasal bone fracture. HISTORY OF PRESENT ILLNESS: This is a 31-year-old male with no significant past medical history who was admitted to [facility] on 01/21/2017 after EMS was called and he was found to be intox icated. The EMS service noted dried blood in his nares and he was brought to the Emergency Room unre sponsive. In the ED, he was not arousable and therefore was intubated for airway protection. At the time, he was found to be positive for cocaine and had an alcohol level of 404. The patient was admi tted to the ICU overnight where he spent a day. He was subsequently extubated and transferred to the medical floor. Ear, nose and throat service was consulted for a nasal bone fracture, which was seen on a CT scan. Upon exam, the patient endorses the history above. He states that he was drinking wi th his friends and does not remember what happened. He does note that his friends called the EMS for him and that there was blood coming out of his nose, but does not specifically remember the events t hat led up to his admission. He currently denies any headaches, fevers, chills, facial pain, ear jhon n and changes in hearing, changes in his vision. He does, however, state that as a child something h appened to his left eye and he has not been able to see from his left eye since then. He does state that the vision in his left eye has not changed since this admission and the vision in his right eye is also stable. Does not have any pain with movement with his eyes. He denies unusual nasal congest ion, difficulty breathing through his nose, further epistaxis from his nose. Denies swallowing blood . Denies any issues with breathing, any changes in voice, any dysphagia or odynophagia. He also den ies any changes to the appearance of the face. PAST MEDICAL HISTORY: A remote history of trauma to his left eye, which has left him without vision in that eye. PAST SURGICAL HISTORY: None. HOME MEDICATIONS: None. ALLERGIES: No known drug allergies. SOCIAL HISTORY: He does drink alcohol and was positive for cocaine. Denies smoking. REVIEW OF SYSTEMS: Negative, and as per HPI. PHYSICAL EXAMINATION: VITAL SIGNS: Temperature is 98.4, pulse is 59, blood pressure is 132/82, respiratory rate 14, and ox ygen saturation is 100 on room air. GENERAL: He is awake, alert, responds appropriately to questions. HEENT: Head is normocephalic, atraumatic. Ears: Canals are clear bilaterally. Bilateral tympanic membranes are intact. No hemotympanum. 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 His left eye lens is missing; however, the right eye, pupils are equal and reactive to light and acco mmodation. Extraocular movements are intact. No pain with extraocular movements. Nose: There is a n old scar across the nasal dorsum. No fresh scars are noted on the outside. The bilateral nares ar e patent. There is no drainage or epistaxis noted. There is some crusting dry mucus noted within th e bilateral nares, slight nasal septal deviation. No septal hematoma visualized. There is a slight deformity that is convex on the right, near the nasomaxillary junction. ORAL CAVITY: Oropharynx, mucous membranes are moist. Tongue is mobile and midline. There is poor d entition with several upper teeth missing. Palate is symmetrical. Uvula is midline. No blood in th e oropharynx. NECK: Soft, nontender. No lymphadenopathy. RESPIRATORY: Nonlabored. No stridor, no difficulty breathing. EXTREMITIES: No clubbing, cyanosis or edema. LABORATORY DATA: His white count is 4.8, hemoglobin is 12.6, hematocrit 37.3, platelet count is 188. PT 11.3, INR 1.05, PTT 29.5. Sodium 141, potassium 4, chloride 102, carbon dioxide 28, BUN 7, crea tinine 0.7. calcium 9.1, phosphorus 2.9, magnesium 2.1, total bilirubin 2.1, AST 76, ALT 44, alkalin e phosphatase 91, total protein 7.8, albumin 3.9. T4 is 5.6. RADIOLOGY: There is a maxillofacial CT scan, which reads there is soft tissue swelling over the nose . There is soft tissue swelling in the cheeks bilaterally. Bony structures. There are bilateral na elizabeth bone fractures. The is a bony nasal septal fracture. There is an old right lamina Propecia frac ture with herniation of the right orbital fat and adjacent ethmoid air cells. There are no acute orb ital fractures. Dental: There are large erosions in the alveolar ridge of the mandible, erosion is associated bilateral central and lateral incisors. There is partial absence of the right upper centr al incisor. There is a large erosion of the root of the left central incisor. There is a partial ab sence of the left upper canine. Brain: No acute abnormalities are visualized. Ears and mastoids: Middle ears and mastoids are unremarkable. Orbits: The right globe is intact. There is a deformity of the left globe. There is a partial dislocation of the left lens. There are dystrophic calcifica tions in the vitreous. There is an increased attenuation in the posterior vitreous. Sinuses: There is no acute sinusitis. There is mild mucoperiosteal thickening in the sinuses. Soft tissues: Ther e are no facial masses. Airway: An endotracheal tube is in place. There is fluid in the posterior n asopharynx and oropharynx. Hypopharynx is collapsed. Impression: Soft tissue swelling over the nos e and cheeks. There are nasal bone fractures and nasal septal fracture, old right lamina Propecia fr acture, probable old left globe injury, extensive dental disease, endotracheal tube in place. ASSESSMENT AND PLAN: This is a 31-year-old male with bilateral nasal bone fractures after being foun d intoxicated and unresponsive. PLAN: Recommend that patient follow up as an outpatient in the office within the next week after dis charge in order to plan for reduction of his nasal bone fractures. The patient currently denies any nasal congestion; however, he does have some dry nasal mucosa. Would recommend saline nasal sprays a nd Afrin nasal spray as needed. The patient also has an old lamina Propecia fracture which is stable and no intervention is needed for that. Again, the patient was instructed that he needs to follow u p within 7-10 days as an outpatient. I stressed the timeline to him as this is the correct timeframe to reduce his nasal bone fracture. Should the patient have any issues with his insurance, he is advi sed to go to the [facility] in [place]. Otherwise, he was advised to follow up as a n outpatient with us. Thank you for allowing us to participate in this patient's care. Joseph Brand DO cc: [id number] TT: 01/23/2017 13:05:48 Confirmation # [id number] Dictation # [id number] rn 01/23/2017 14:57:48
[2017-01-23] MEDS: Sodium Chloride 0.9% 1,000 ML IV SCH (18:07)
--- NOTE | 2017-01-23 22:22 | CP.PCM.PN ---
<Rachel Carrington - Last Filed: 01/24/17 06:24> Subjective - Date & Time of Evaluation Date of Evaluation: 01/23/17 Time of Evaluation: 08:55 - Subjective Subjective: Pt seen and evaluated at the bedside. Pt is tolerating diet, denies n/v less abdominal pain, and no c/o w/urination. Afebrile overnight. Objective - Vital Signs/Intake and Output Vital Signs (last 24 hours): Temp Pulse Resp BP Pulse Ox 98.1 F 52 L 16 132/82 100 01/23/17 08:00 01/23/17 08:00 01/23/17 08:00 01/23/17 08:00 01/23/17 08:00 Intake and Output: 01/23/17 01/24/17 18:59 06:59 Intake Total 540 Output Total 700 Balance -160 - Medications Medications: Current Medications Folic Acid (Folic Acid) 1 mg PO DAILY [facility] Last Admin: 01/23/17 10:21 Dose: 1 mg Heparin Sodium (Porcine) (Heparin) 5,000 units SC Q12 RAUL PRN Reason: Protocol Last Admin: 01/23/17 21:47 Dose: 5,000 units Sodium Chloride (Sodium Chloride 0.9%) 1,000 mls @ 100 mls/hr IV .Q10H [facility] Last Admin: 01/23/17 18:07 Dose: 100 mls/hr Lorazepam (Ativan) 2 mg IVP Q6H PRN; Protocol PRN Reason: Agitation Last Admin: 01/22/17 06:06 Dose: 2 mg Pantoprazole Sodium (Protonix Inj) 40 mg IVP DAILY [facility] Last Admin: 01/23/17 10:21 Dose: 40 mg Thiamine HCl (Vitamin B1 Tab) 50 mg PO DAILY [facility] Last Admin: 01/23/17 10:21 Dose: 50 mg - Labs Labs: 01/23/17 06:10 01/23/17 06:10 PT 11.3 Seconds (9.9-11.8) 01/21/17 19:20 INR 1.05 (0.93-1.08) 01/21/17 19:20 APTT 29.5 Seconds (23.7-30.8) 01/21/17 19:20 Assessment and Plan - Assessment and Plan (Free Text) Plan: 31Y M with unknown PMH found to be positive for alcohol and cocaine who was ICU care for multidrug withdrawal. Pt is currently extubated, and under med/surg care. Multidrug withdrawal (etoh, cocaine) EKG showed NSR CIWA protocol Maintain SpO2>90% Aspiration precaution Ativan prn agitation Neuro check q4h Head CT neg for bleed Cervical Spine CT neg for fracture Maxofacial CT showed bilateral nasal fracture- patient can follow up with ENT as outpatient AST at 76 from yesterday's 85, will monitor GI ppx: PTX DVT ppx: Heparin SC Case seem, reviewed and discussed with attending. Yulisa Carrington PGY1 <Katy SANCHEZ,[facility] - Last Filed: 01/26/17 10:16> Objective - Vital Signs/Intake and Output Vital Signs (last 24 hours): Temp Pulse Resp BP Pulse Ox 98.6 F 61 20 123/92 H 97 01/24/17 16:00 01/24/17 16:00 01/24/17 16:00 01/24/17 16:00 01/24/17 16:00 - Labs Labs: 01/24/17 07:40 01/24/17 07:40 PT 11.3 Seconds (9.9-11.8) 01/21/17 19:20 INR 1.05 (0.93-1.08) 01/21/17 19:20 APTT 29.5 Seconds (23.7-30.8) 01/21/17 19:20 Attending/Attestation - Attestation I have personally seen and examined this patient.: Yes I have fully participated in the care of the patient.: Yes I have reviewed all pertinent clinical information, including history, physical exam and plan: Yes Notes (Text): 01/26/17 10:15 Patient was seen and examined with medical massage therapist .Agreed with resident assessment and plan. Patient was extubated, no sign of alcohol withdrawal at this time, if cleared by ENT, can be discharged home. The issue of chronic ongoing alcohol abuse was discussed in detail with patient. Management plan was discussed in detail with patient Education was provided.
[2017-01-24] MEDS: Sodium Chloride 0.9% 1,000 ML IV SCH ×2 (04:19→11:51)
[2017-01-24 08:01] LABS: ADD MANUAL DIFF? NO
[2017-01-24 08:05] LABS: BASO # 0.02 K/mm3 (0.0-2.0); BASO % 0.5 % (0.0-3.0); EOS # 0.3 (0.0-0.7); EOS % 6.8 % (1.5-5.0); GRAN # 1.86 (1.4-6.5); GRAN % 46.7 % (50.0-68.0); HEMATOCRIT 37.8 % (42.0-52.0); LYMPH # 1.2 (1.2-3.4); LYMPH % 31.2 % (22.0-35.0); MEAN CELL VOLUME 89.4 fL (80.0-105.0); MEAN CORPUSCULAR HGB CONC 33.6 g/dl (31.0-37.0); MEAN PLATELET VOLUME 11.2 fl (7.0-11.0); MONO # 0.6 (0.1-0.6); MONO % 14.8 % (1.0-6.0); PLATELET COUNT 189 10^3/uL (120.0-450.0); RED CELL DISTRIBUTION WIDTH 13.9 % (11.5-14.5)
[2017-01-24 08:47] LABS: ALKALINE PHOSPHATASE 95 U/L (38-133); ALT/SGPT 44 U/L (7-56); AST/SGOT 71 U/L (15-59); BILIRUBIN,TOTAL 1.8 mg/dL (0.2-1.3); BLOOD UREA NITROGEN 6 mg/dL (7-21); CALCIUM 8.9 mg/dL (8.4-10.5); CARBON DIOXIDE 26 mmol/L (21-33); CHLORIDE 101 mmol/L (98-107); GFR AFRICAN-AMERICAN > 60; GLUCOSE,RANDOM 89 mg/dL (70-110); MAGNESIUM 1.8 mg/dL (1.7-2.2); POTASSIUM 3.8 mmol/L (3.6-5.0); SODIUM 136 mmol/L (132-148); TOTAL PROTEIN 8.1 g/dL (5.8-8.3)
--- NOTE | 2017-01-24 14:42 | CP.PCM.DIS ---
<Rachel Carrington - Last Filed: 02/27/17 23:34> Provider - Provider Date of Admission: 01/21/17 21:10 Attending physician: Rolando Montano MD Primary care physician: NO PRIMARY CARE PROVIDER Consults: Dr. Brand Time Spent in preparation of Discharge (in minutes): 25 Hospital Course - Lab Results Lab Results: Micro Results 01/21/17 23:40 Naris MRSA Culture (Admit) - Final MRSA NOT DETECTED Most Recent Lab Values WBC 4.0 10^3/ul (4.5-11.0) L 01/24/17 07:40 RBC 4.23 10^6/uL (3.5-6.1) 01/24/17 07:40 Hgb 12.7 gm/dL (14.0-18.0) L 01/24/17 07:40 Hct 37.8 % (42.0-52.0) L 01/24/17 07:40 MCV 89.4 fL (80.0-105.0) 01/24/17 07:40 MCH 30.0 pg (25.0-35.0) 01/24/17 07:40 MCHC 33.6 g/dl (31.0-37.0) 01/24/17 07:40 RDW 13.9 % (11.5-14.5) 01/24/17 07:40 Plt Count 189 10^3/uL (120.0-450.0) 01/24/17 07:40 MPV 11.2 fl (7.0-11.0) H 01/24/17 07:40 Gran % 46.7 % (50.0-68.0) L 01/24/17 07:40 Lymph % (Auto) 31.2 % (22.0-35.0) 01/24/17 07:40 Sawyer % (Auto) 14.8 % (1.0-6.0) H 01/24/17 07:40 Eos % (Auto) 6.8 % (1.5-5.0) H 01/24/17 07:40 Baso % (Auto) 0.5 % (0.0-3.0) 01/24/17 07:40 Gran # 1.86 (1.4-6.5) 01/24/17 07:40 Lymph # 1.2 (1.2-3.4) 01/24/17 07:40 Sawyer # 0.6 (0.1-0.6) 01/24/17 07:40 Eos # 0.3 (0.0-0.7) 01/24/17 07:40 Baso # 0.02 K/mm3 (0.0-2.0) 01/24/17 07:40 PT 11.3 Seconds (9.9-11.8) 01/21/17 19:20 INR 1.05 (0.93-1.08) 01/21/17 19:20 APTT 29.5 Seconds (23.7-30.8) 01/21/17 19:20 pCO2 41 mm/Hg (35-45) 01/21/17 21:15 pO2 104 mm/Hg (30-55) H 01/22/17 08:50 HCO3 21.1 mmol/L (21-28) 01/21/17 21:15 ABG pH 7.32 (7.35-7.45) L 01/21/17 21:15 ABG Total CO2 22.4 mmol.L (22-28) 01/21/17 21:15 ABG O2 Saturation 97.7 % (95-98) 01/21/17 21:15 ABG Base Excess -4.8 mmol/L (-2.0-3.0) L 01/21/17 21:15 ABG Potassium 3.5 mmol/L (3.6-5.2) L 01/21/17 21:15 VBG pH 7.33 (7.32-7.43) 01/22/17 08:50 VBG pCO2 43.0 (40-60) 01/22/17 08:50 VBG HCO3 22.7 mmol/l (21-28) 01/22/17 08:50 VBG Total CO2 24.0 mmol.L (22-28) 01/22/17 08:50 VBG O2 Sat (Calc) 97.2 % (40-65) H 01/22/17 08:50 VBG Base Excess -3.2 mmol/L (0.0-2.0) L 01/22/17 08:50 VBG Potassium 3.7 mmol/L (3.6-5.2) 01/22/17 08:50 Sodium 142.0 mmol/L (132-148) 01/22/17 08:50 Chloride 114.0 mmol/L (98-107) H 01/22/17 08:50 Glucose 86 mg/dl (75-110) 01/22/17 08:50 Lactate 1.8 mmol/L (0.7-2.1) 01/22/17 08:50 Mechanical Rate 16 01/21/17 21:15 FiO2 21.0 % 01/22/17 08:50 Tidal Volume 400 01/21/17 21:15 PEEP 5 01/21/17 21:15 Sodium 136 mmol/L (132-148) 01/24/17 07:40 Potassium 3.8 mmol/L (3.6-5.0) 01/24/17 07:40 Chloride 101 mmol/L (98-107) 01/24/17 07:40 Carbon Dioxide 26 mmol/L (21-33) 01/24/17 07:40 Anion Gap 13 (10-20) 01/24/17 07:40 BUN 6 mg/dL (7-21) L 01/24/17 07:40 Creatinine 0.6 mg/dL (0.5-1.4) 01/24/17 07:40 Est GFR ( Amer) > 60 01/24/17 07:40 Est GFR (Non-Af Amer) > 60 01/24/17 07:40 Random Glucose 89 mg/dL (70-110) 01/24/17 07:40 Calcium 8.9 mg/dL (8.4-10.5) 01/24/17 07:40 Phosphorus 3.0 mg/dL (2.5-4.5) 01/24/17 07:40 Magnesium 1.8 mg/dL (1.7-2.2) 01/24/17 07:40 Total Bilirubin 1.8 mg/dL (0.2-1.3) H 01/24/17 07:40 AST 71 U/L (15-59) H 01/24/17 07:40 ALT 44 U/L (7-56) 01/24/17 07:40 Alkaline Phosphatase 95 U/L (38-133) 01/24/17 07:40 Lactate Dehydrogenase 560 U/L (333-699) 01/21/17 19:20 Total Creatine Kinase 280 U/L (35-230) H 01/21/17 19:20 CK-MB (CK-2) 2.4 ng/mL (0.0-3.6) 01/21/17 19:20 CK-MB (CK-2) % Cancelled 01/21/17 19:20 Troponin I < 0.01 ng/mL 01/21/17 19:20 Total Protein 8.1 g/dL (5.8-8.3) 01/24/17 07:40 Albumin 3.9 g/dL (3.0-4.8) 01/24/17 07:40 Globulin 4.1 gm/dL 01/24/17 07:40 Albumin/Globulin Ratio 1.0 (1.1-1.8) L 01/24/17 07:40 Thyroxine (T4) 5.6 ug/dL (5.5-11.0) 01/22/17 09:02 TSH 3rd Generation 0.34 mIU/mL (0.46-4.68) L 01/21/17 19:20 Arterial Blood Potassium 3.5 mmol/L (3.6-5.2) L 01/21/17 21:15 Venous Blood Potassium 3.7 mmol/L (3.6-5.2) 01/22/17 08:50 Urine Color Yellow (YELLOW) 01/21/17 20:48 Urine Appearance Clear (CLEAR) 01/21/17 20:48 Urine pH 6.0 (4.7-8.0) 01/21/17 20:48 Ur Specific [place] <= 1.005 (1.005-1.035) 01/21/17 20:48 Urine Protein Trace mg/dL (<30 mg/dL) H 01/21/17 20:48 Urine Glucose (UA) Negative mg/dL (NEGATIVE) 01/21/17 20:48 Urine Ketones Negative mg/dL (NEGATIVE) 01/21/17 20:48 Urine Blood Moderate (NEGATIVE) H 01/21/17 20:48 Urine Nitrate Negative (NEGATIVE) 01/21/17 20:48 Urine Bilirubin Negative (NEGATIVE) 01/21/17 20:48 Urine Urobilinogen 0.2 E.U./dL (<1 E.U./dL) 01/21/17 20:48 Ur Leukocyte Esterase Negative Dimitry/uL (NEGATIVE) 01/21/17 20:48 Urine RBC 20 - 25 /hpf (0-2) 01/21/17 20:48 Urine WBC 2 - 5 /hpf (0-6) 01/21/17 20:48 Ur Epithelial Cells 4 - 5 /hpf (0-5) 01/21/17 20:48 Salicylates < 1 mg/dL (2.0-20.0) L 01/21/17 19:20 Urine Opiates Screen Negative (NEGATIVE) 01/21/17 20:48 Urine Methadone Screen Negative (NEGATIVE) 01/21/17 20:48 Acetaminophen < 10.0 ug/ml (10.0-20.0) L 01/21/17 19:20 Ur Barbiturates Screen Negative (NEGATIVE) 01/21/17 20:48 Ur Phencyclidine Scrn Negative (NEGATIVE) 01/21/17 20:48 Ur Amphetamines Screen Negative (NEGATIVE) 01/21/17 20:48 U Benzodiazepines Scrn Negative (NEGATIVE) 01/21/17 20:48 U Oth Cocaine Metabols Positive (NEGATIVE) H 01/21/17 20:48 U Cannabinoids Screen Negative (NEGATIVE) 01/21/17 20:48 Alcohol, Quantitative 100 mg/dL (0-10) H 01/22/17 09:02 Hepatitis A IgM Ab Negative (NEGATIVE) 01/21/17 19:20 Hep Bs Antigen Negative (NEGATIVE) 01/21/17 19:20 Hep B Core IgM Ab Negative (NEGATIVE) 01/21/17 19:20 Hepatitis C Antibody Negative (NEGATIVE) 01/21/17 19:20 - Hospital Course Hospital Course: 31Y M with unknown PMHx who called EMS and was found to be intoxicated. EMS noted dried blood on his nares. He was brought to the stretched and collapsed. He was unresponsive. In the ED, patient was not arrousable. He was intubated for airway protection. EKG showed NSR. Patient was found to be positive for cocaine and had an alcohol level of 404. Admitted to critical care for substance abuse and respiratory failure. ICU care for multidrug withdrawal. Head CT neg for bleed, Cervical Spine CT neg for fracture, Maxofacial CT showed bilateral nasal fracture. Administered IVF, and ativan prn on agitation of pulling on lines. Thiamine, folic acid and multivitamin administered to pt. Pt's condition improved, was extubated and transferred to med/surg where there was no sign of alcohol withdrawal, and pt was cleared by ENT consult. Ongoing chronic alcohol abuse was discussed in detail with patient. Pt discharged home in stable condition with the following instructions: You are discharged. Please take new medications of Thiamine, folic acid and multivitamin daily. Please follow-up within one week to [address] Brand (ENT) at the phone number and address provided by him. Please follow- up with your primary medical doctor within 2 weeks. Please return to the emergency department for worsening of symptoms. Discharge Exam - Additional Findings Additional findings: - Constitutional Appears: non-toxic, no acute distress - Head Exam Head Exam: ATRAUMATIC, NORMOCEPHALIC - Eye Exam Eye Exam: Normal appearance, EOMI - Neck Exam Neck exam: Positive for: Normal Inspection - Respiratory Exam Respiratory Exam: Clear to Auscultation Bilateral, NORMAL BREATHING PATTERN. absent: Rales, Rhonchi, Wheezes - Cardiovascular Exam Cardiovascular Exam: REGULAR RHYTHM, +S1, +S2. absent: Gallop, Rubs, Systolic Murmur - GI/Abdominal Exam GI & Abdominal Exam: Soft. absent: Mass, Rebound, Rigid, Tenderness - Extremities Exam Extremities exam: Positive for: normal inspection. Negative for: calf tenderness, pedal edema -Back Exam Back Exam: no R CVA tenderness, no L CVA tenderness - Skin Skin Exam: Normal Color, Warm Discharge Plan - Discharge Medications Prescriptions: Folic Acid 1 mg PO DAILY #14 tab Multivitamin [Men's Multi-Vitamin] 1 each PO DAILY #14 tablet Thiamine [Vitamin B1 Tab] 100 mg PO DAILY #14 tab - Follow Up Plan Condition: STABLE Disposition: HOME/ ROUTINE Instructions: Alcohol Intoxication (DC), Abuse of Alcohol (DC), Acute Nausea and Vomiting (DC), Acute Delirium (DC) Additional Instructions: You are discharged. Please take new medications of Thiamine, folic acid and multivitamin daily. Please follow-up within one week to [address] Brand at the phone number and address provided by him. Please follow-up with your primary medical doctor within 2 weeks. Please return to the emergency department for worsening of symptoms. Referrals: Joseph Brand DO [Staff Provider] - PCP,NO [Primary Care Provider] - <Rolando Montano - Last Filed: 02/28/17 06:49> Provider - Provider Date of Admission: 01/21/17 21:10 Attending physician: Rolando Montano MD Primary care physician: NO PRIMARY CARE PROVIDER Time Spent in preparation of Discharge (in minutes): 35 Hospital Course - Lab Results Lab Results: Micro Results 01/21/17 23:40 Naris MRSA Culture (Admit) - Final MRSA NOT DETECTED Most Recent Lab Values WBC 4.0 10^3/ul (4.5-11.0) L 01/24/17 07:40 RBC 4.23 10^6/uL (3.5-6.1) 01/24/17 07:40 Hgb 12.7 gm/dL (14.0-18.0) L 01/24/17 07:40 Hct 37.8 % (42.0-52.0) L 01/24/17 07:40 MCV 89.4 fL (80.0-105.0) 01/24/17 07:40 MCH 30.0 pg (25.0-35.0) 01/24/17 07:40 MCHC 33.6 g/dl (31.0-37.0) 01/24/17 07:40 RDW 13.9 % (11.5-14.5) 01/24/17 07:40 Plt Count 189 10^3/uL (120.0-450.0) 01/24/17 07:40 MPV 11.2 fl (7.0-11.0) H 01/24/17 07:40 Gran % 46.7 % (50.0-68.0) L 01/24/17 07:40 Lymph % (Auto) 31.2 % (22.0-35.0) 01/24/17 07:40 Sawyer % (Auto) 14.8 % (1.0-6.0) H 01/24/17 07:40 Eos % (Auto) 6.8 % (1.5-5.0) H 01/24/17 07:40 Baso % (Auto) 0.5 % (0.0-3.0) 01/24/17 07:40 Gran # 1.86 (1.4-6.5) 01/24/17 07:40 Lymph # 1.2 (1.2-3.4) 01/24/17 07:40 Sawyer # 0.6 (0.1-0.6) 01/24/17 07:40 Eos # 0.3 (0.0-0.7) 01/24/17 07:40 Baso # 0.02 K/mm3 (0.0-2.0) 01/24/17 07:40 PT 11.3 Seconds (9.9-11.8) 01/21/17 19:20 INR 1.05 (0.93-1.08) 01/21/17 19:20 APTT 29.5 Seconds (23.7-30.8) 01/21/17 19:20 pCO2 41 mm/Hg (35-45) 01/21/17 21:15 pO2 104 mm/Hg (30-55) H 01/22/17 08:50 HCO3 21.1 mmol/L (21-28) 01/21/17 21:15 ABG pH 7.32 (7.35-7.45) L 01/21/17 21:15 ABG Total CO2 22.4 mmol.L (22-28) 01/21/17 21:15 ABG O2 Saturation 97.7 % (95-98) 01/21/17 21:15 ABG Base Excess -4.8 mmol/L (-2.0-3.0) L 01/21/17 21:15 ABG Potassium 3.5 mmol/L (3.6-5.2) L 01/21/17 21:15 VBG pH 7.33 (7.32-7.43) 01/22/17 08:50 VBG pCO2 43.0 (40-60) 01/22/17 08:50 VBG HCO3 22.7 mmol/l (21-28) 01/22/17 08:50 VBG Total CO2 24.0 mmol.L (22-28) 01/22/17 08:50 VBG O2 Sat (Calc) 97.2 % (40-65) H 01/22/17 08:50 VBG Base Excess -3.2 mmol/L (0.0-2.0) L 01/22/17 08:50 VBG Potassium 3.7 mmol/L (3.6-5.2) 01/22/17 08:50 Sodium 142.0 mmol/L (132-148) 01/22/17 08:50 Chloride 114.0 mmol/L (98-107) H 01/22/17 08:50 Glucose 86 mg/dl (75-110) 01/22/17 08:50 Lactate 1.8 mmol/L (0.7-2.1) 01/22/17 08:50 Mechanical Rate 16 01/21/17 21:15 FiO2 21.0 % 01/22/17 08:50 Tidal Volume 400 01/21/17 21:15 PEEP 5 01/21/17 21:15 Sodium 136 mmol/L (132-148) 01/24/17 07:40 Potassium 3.8 mmol/L (3.6-5.0) 01/24/17 07:40 Chloride 101 mmol/L (98-107) 01/24/17 07:40 Carbon Dioxide 26 mmol/L (21-33) 01/24/17 07:40 Anion Gap 13 (10-20) 01/24/17 07:40 BUN 6 mg/dL (7-21) L 01/24/17 07:40 Creatinine 0.6 mg/dL (0.5-1.4) 01/24/17 07:40 Est GFR ( Amer) > 60 01/24/17 07:40 Est GFR (Non-Af Amer) > 60 01/24/17 07:40 Random Glucose 89 mg/dL (70-110) 01/24/17 07:40 Calcium 8.9 mg/dL (8.4-10.5) 01/24/17 07:40 Phosphorus 3.0 mg/dL (2.5-4.5) 01/24/17 07:40 Magnesium 1.8 mg/dL (1.7-2.2) 01/24/17 07:40 Total Bilirubin 1.8 mg/dL (0.2-1.3) H 01/24/17 07:40 AST 71 U/L (15-59) H 01/24/17 07:40 ALT 44 U/L (7-56) 01/24/17 07:40 Alkaline Phosphatase 95 U/L (38-133) 01/24/17 07:40 Lactate Dehydrogenase 560 U/L (333-699) 01/21/17 19:20 Total Creatine Kinase 280 U/L (35-230) H 01/21/17 19:20 CK-MB (CK-2) 2.4 ng/mL (0.0-3.6) 01/21/17 19:20 CK-MB (CK-2) % Cancelled 01/21/17 19:20 Troponin I < 0.01 ng/mL 01/21/17 19:20 Total Protein 8.1 g/dL (5.8-8.3) 01/24/17 07:40 Albumin 3.9 g/dL (3.0-4.8) 01/24/17 07:40 Globulin 4.1 gm/dL 01/24/17 07:40 Albumin/Globulin Ratio 1.0 (1.1-1.8) L 01/24/17 07:40 Thyroxine (T4) 5.6 ug/dL (5.5-11.0) 01/22/17 09:02 Reverse T3 13 ng/dL (8-25) 01/22/17 09:10 TSH 3rd Generation 0.34 mIU/mL (0.46-4.68) L 01/21/17 19:20 Arterial Blood Potassium 3.5 mmol/L (3.6-5.2) L 01/21/17 21:15 Venous Blood Potassium 3.7 mmol/L (3.6-5.2) 01/22/17 08:50 Urine Color Yellow (YELLOW) 01/21/17 20:48 Urine Appearance Clear (CLEAR) 01/21/17 20:48 Urine pH 6.0 (4.7-8.0) 01/21/17 20:48 Ur Specific [place] <= 1.005 (1.005-1.035) 01/21/17 20:48 Urine Protein Trace mg/dL (<30 mg/dL) H 01/21/17 20:48 Urine Glucose (UA) Negative mg/dL (NEGATIVE) 01/21/17 20:48 Urine Ketones Negative mg/dL (NEGATIVE) 01/21/17 20:48 Urine Blood Moderate (NEGATIVE) H 01/21/17 20:48 Urine Nitrate Negative (NEGATIVE) 01/21/17 20:48 Urine Bilirubin Negative (NEGATIVE) 01/21/17 20:48 Urine Urobilinogen 0.2 E.U./dL (<1 E.U./dL) 01/21/17 20:48 Ur Leukocyte Esterase Negative Dimitry/uL (NEGATIVE) 01/21/17 20:48 Urine RBC 20 - 25 /hpf (0-2) 01/21/17 20:48 Urine WBC 2 - 5 /hpf (0-6) 01/21/17 20:48 Ur Epithelial Cells 4 - 5 /hpf (0-5) 01/21/17 20:48 Salicylates < 1 mg/dL (2.0-20.0) L 01/21/17 19:20 Urine Opiates Screen Negative (NEGATIVE) 01/21/17 20:48 Urine Methadone Screen Negative (NEGATIVE) 01/21/17 20:48 Acetaminophen < 10.0 ug/ml (10.0-20.0) L 01/21/17 19:20 Ur Barbiturates Screen Negative (NEGATIVE) 01/21/17 20:48 Ur Phencyclidine Scrn Negative (NEGATIVE) 01/21/17 20:48 Ur Amphetamines Screen Negative (NEGATIVE) 01/21/17 20:48 U Benzodiazepines Scrn Negative (NEGATIVE) 01/21/17 20:48 U Oth Cocaine Metabols Positive (NEGATIVE) H 01/21/17 20:48 U Cannabinoids Screen Negative (NEGATIVE) 01/21/17 20:48 Alcohol, Quantitative 100 mg/dL (0-10) H 01/22/17 09:02 Hepatitis A IgM Ab Negative (NEGATIVE) 01/21/17 19:20 Hep Bs Antigen Negative (NEGATIVE) 01/21/17 19:20 Hep B Core IgM Ab Negative (NEGATIVE) 01/21/17 19:20 Hepatitis C Antibody Negative (NEGATIVE) 01/21/17 19:20 Attending/Attestation - Attestation I have personally seen and examined this patient.: Yes I have fully participated in the care of the patient.: Yes I have reviewed all pertinent clinical information, including history, physical exam and plan: Yes Notes (Text): 02/28/17 06:46 31 year old male who presented with unresponsiveness and intoxication. Toxicology was positive for cocaine and alcohol level of 404. He was intubated for airway protection and admitted to the ICU. CT head and cervical spine were negative. Maxofacial CT showed bilateral nasal fracture. He was treated for ETOH withdrawal. He was extubated and transferred to floor. He was counselled on risks of continued substance and alcohol abuse. He was seen by ENT as well. Patient is discharged home to follow up with his pmd. Follow up with ENT. Counselled on risks of continued substance and alcohol abuse. Rolando Montano MD Hospitalist.
[2017-01-24 18:37] VITALS: BP 123/92; PULSE 61; RESP 20; TEMP 98.6; O2SAT 97
== END 2017-01-24 19:47 | disposition home or self-care (01) | DRG 750 ==
LOC: ED 19:14 → ERH 21:10 → EDBD 21:10 → CCU 23:15 → 5RSO 01-23 11:23
PROVIDERS: ADMIT Internal Medicine; ATTEND Internal Medicine
PROC: 0BH17EZ Insertion of Endotracheal Airway into Trachea, Via Natural or Artificial Opening (ICD-10-PCS; principal; 2017-01-21)
PROC: 5A1935Z Respiratory Ventilation, Less than 24 Consecutive Hours (ICD-10-PCS; 2017-01-21)
DX: F10.129 Alcohol abuse with intoxication, unspecified (principal); J96.90 Respiratory failure, unspecified, unspecified whether with hypoxia or hypercapnia; Y90.8 Blood alcohol level of 240 mg/100 ml or more; S02.2XXA Fracture of nasal bones, initial encounter for closed fracture; W19.XXXA Unspecified fall, initial encounter; Y93.9 Activity, unspecified; Y92.9 Unspecified place or not applicable; Y99.9 Unspecified external cause status

== ENCOUNTER 2017-10-25 03:32 | Emergency (ER) | payer OTHER ==
[2017-10-25 03:38] VITALS: BMI 23.2
[2017-10-25 03:47] VITALS: RESP 18; O2SAT 98
--- NOTE | 2017-10-25 03:55 | ED PDOC ---
Arrival/HPI - General Chief Complaint: Alcohol Ingestion Time Seen by Provider: 10/25/17 03:54 Historian: Patient - History of Present Illness Narrative History of Present Illness (Text): 10/25/17 04:04 32 year old male, occasional drinker, with no significant past medical history, presents to the Emergency department via EMS for alcohol intoxication prior to arrival. Patient admits to drinking beer today. Patient currently denies any trauma or somatic complaints. Patient denies any fever, chills, nausea, vomiting , abdominal pain, chest pain, shortness of breath or any other complaints. Time/Duration: Prior to Arrival Symptom Onset: Gradual Symptom Course: Unchanged Activities at Onset: Light Context: Other (Alcohol Intoxication) Past Medical History - Provider Review Nursing Documentation Reviewed: Yes - Cardiac Hx Cardiac Disorders: No - Pulmonary Hx Respiratory Disorders: No Other/Comment: unknown medical hx -pt unresponsive no identification or family available - Neurological Hx Neurological Disorder: No - HEENT Hx Cataracts: Yes (left eye opague,abn., no reaction noted) - Renal Hx Renal Disorder: No - Endocrine/Metabolic Hx Endocrine Disorders: No - Hematological/Oncological Hx Blood Disorders: No - Integumentary Hx Dermatological Disorder: No - Musculoskeletal/Rheumatological Hx Falls: Yes - Gastrointestinal Hx Gastrointestinal Disorders: No - Genitourinary/Gynecological Hx Genitourinary Disorders: No - Psychiatric Hx Psychophysiologic Disorder: No Hx Substance Use: No (unknown) Family/Social History - Physician Review Nursing Documentation Reviewed: Yes Family/Social History: No Known Family HX Smoking Status: Unknown If Ever Smoked Hx Alcohol Use: Yes Hx Substance Use: No (unknown) Allergies/Home Meds Allergies/Adverse Reactions: Allergies No Known Allergies Allergy (Verified 01/23/17 07:31) Home Medications: Home Meds Medication Instructions Recorded Confirmed No Known Home Med 10/25/17 10/25/17 Review of Systems - Physician Review All systems were reviewed & negative as marked: Yes - Review of Systems Constitutional: Normal. absent: Fevers Eyes: Normal ENT: Normal Respiratory: Normal. absent: SOB Cardiovascular: Normal. absent: Chest Pain Gastrointestinal: Normal. absent: Abdominal Pain, Diarrhea, Nausea, Vomiting Genitourinary Male: Normal Musculoskeletal: Normal Skin: Normal Neurological: Normal Endocrine: Normal Hemo/Lymphatic: Normal Psychiatric: Other (Intoxicated ) Physical Exam Vital Signs Reviewed: Yes Vital Signs Temp Pulse Resp BP Pulse Ox 10/25/17 03:46 97.9 F 75 18 129/80 98 Temperature: Afebrile Blood Pressure: Normal Pulse: Regular Respiratory Rate: Normal Appearance: Positive for: Comfortable, Other (Intoxicated) Pain Distress: None Mental Status: Positive for: Alert and Oriented X 3 - Systems Exam Head: Present: Atraumatic, Normocephalic Pupils: Present: PERRL Extroacular Muscles: Present: EOMI Conjunctiva: Present: Normal Mouth: Present: Moist Mucous Membranes Neck: Present: Normal Range of Motion Respiratory/Chest: Present: Clear to Auscultation, Good Air Exchange. No: Respiratory Distress, Accessory Muscle Use Cardiovascular: Present: Regular Rate and Rhythm, Normal S1, S2. No: Murmurs Abdomen: Present: Normal Bowel Sounds. No: Tenderness, Distention, Peritoneal Signs Back: Present: Normal Inspection Upper Extremity: Present: Normal Inspection. No: Cyanosis, Edema Lower Extremity: Present: Normal Inspection. No: Edema Neurological: Present: GCS=15, CN II-XII Intact, Speech Normal Skin: Present: Warm, Dry, Normal Color. No: Rashes Psychiatric: Present: Alert, Oriented x 3, Intoxicated Medical Decision Making ED Course and Treatment: 10/25/17 04:09 Impression: 32 year old male presents to the Emergency department for alcohol intoxication. Plan: -- Reassess and disposition Progress Notes: 10/25/17 06:19 awake alert ambulatory; stable for discharge. - Scribe Statement The provider has reviewed the documentation as recorded by the Scribe Elier Quinn. All medical record entries made by the Scribe were at my direction and personally dictated by me. I have reviewed the chart and agree that the record accurately reflects my personal performance of the history, physical exam, medical decision making, and the department course for this patient. I have also personally directed, reviewed, and agree with the discharge instructions and disposition. Disposition/Present on Arrival - Present on Arrival Any Indicators Present on Arrival: No History of DVT/PE: No History of Uncontrolled Diabetes: No Urinary Catheter: No History of Decub. Ulcer: No History Surgical Site Infection Following: None - Disposition Have Diagnosis and Disposition been Completed?: Yes Diagnosis: Alcohol abuse with intoxication Disposition: HOME/ ROUTINE Disposition Time: 06:30 Patient Plan: Discharge Condition: IMPROVED Forms: [facility] (Cameroonian), [employer] (Korean)
[2017-10-25 06:50] VITALS: BP 126/74; PULSE 72; TEMP 97.6
== END 2017-10-25 07:00 | disposition home or self-care (01) ==
LOC: ED 03:32
DX: F10.129 Alcohol abuse with intoxication, unspecified (principal)